=== PATIENT | male | born 1975 | race Caucasian/White ===

== ENCOUNTER 2022-09-20 18:07 | Emergency (ER) | payer BC, SELFPAY ==
[2022-09-20 18:27] VITALS: BP 134/98; PULSE 96; RESP 20; TEMP 37.3; O2SAT 98; BMI 32.5
--- NOTE | 2022-09-20 18:38 | ECG_ITS ---
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
--- NOTE | 2022-09-20 19:03 | ED.GENADUL1 ---
HPI - General Adult General Chief complaint: Dizziness Stated complaint: DIZZNESS EARACHE Time Seen by Provider: 09/20/22 18:51 Source: patient Mode of arrival: walk-in Limitations: no limitations History of Present Illness HPI narrative: 47 year old male presents to the ED for right ear discomfort, ringing. He has had the ringing for months, intermittently. States he developed increased discomfort over the past couple of days. Reports an episode of dizziness with a spinning sensation today. Denies fever, chills, RAMÍREZ, vision changes, weakness, N/V. Denies CP, SOB, cough, neck pain. Denies back pain, abd pain, diarrhea, urinary sx. Rates his pain 4/10 at this time. Related Data Previous Rx's Medication Instructions Recorded cetirizine 10 mg tablet (Zyrtec) 10 mg PO DAILY #14 tabs 09/20/22 meclizine 25 mg tablet 25 mg PO TID PRN dizziness or 09/20/22 vertigo #14 tabs Allergies Allergy/AdvReac Type Severity Reaction Status Date / Time No Known Drug Allergies Allergy Verified 09/20/22 18:27 Review of Systems ROS Constitutional Denies: fever or chills Eyes Denies: change in vision or blurry vision Ears, nose, mouth, and throat Reports: ear pain, tinnitus and vertigo; Denies: throat pain, neck pain, ear discharge or nasal congestion Cardiovascular Denies: chest pain or palpitations Respiratory Denies: shortness of breath or cough Gastrointestinal Denies: nausea or vomiting Musculoskeletal Denies: back pain or neck pain Integumentary/Breast Denies: rash Neurological Reports: vertigo; Denies: headache, numbness in extremities, weakness in extremities or lack of coordination [facility], [facility] Medical History (Updated 09/20/22 @ 19:32 by Tanesha Sibley) Surgical History (Updated 09/20/22 @ 18:43 by Leighton Bustamante) Social History Smoking status: Former smoker Exam Constitutional Vital Signs, click to edit/add: Last Vital Signs Temp 99.2 F 09/20/22 18:27 Pulse 96 H 09/20/22 18:27 Resp 20 09/20/22 18:27 BP 134/98 H 09/20/22 18:27 Pulse Ox 98 09/20/22 18:27 Common normals: no apparent distress and oriented x3 Exam limitations: no altered mental status General appearance: cooperative; not in distress HENMT Common normals: normocephalic Face and sinus: face symmetric External ear: external ears normal External auditory canal: EACs normal Tympanic membrane: TM normal on the left and TM abnormal TM laterality: right with fluid behind the TM; not erythematous, with no loss of landmarks, not obstructed by cerumen and not perforated Mouth: oral and palatal mucosa normal, lip normal and tongue normal Eye Common normals: PERRL and EOMs intact bilaterally Chest Chest: symmetrical chest wall rise Respiratory Common normals: normal respiratory effort Effort & inspection: symmetric chest movement Cardio Common normals: regular rate and regular rhythm Neuro Common normals: oriented x3, CN's II-XII intact bilaterally, moves all extremities, no focal motor deficits, no sensory deficits noted and gait normal Sensorium/orientation: awake and alert Speech: speech normal Gait (neuro): normal gait Course Vital Signs Vital signs: Vital Signs Temperature 99.2 F 09/20/22 18:27 Pulse Rate 96 H 09/20/22 18:27 Respiratory Rate 20 09/20/22 18:27 Blood Pressure 134/98 H 09/20/22 18:27 Pulse Oximetry 98 09/20/22 18:27 Temperature 99.2 F 09/20/22 18:27 Pulse Rate 96 H 09/20/22 18:27 Respiratory Rate 20 09/20/22 18:27 Blood Pressure 134/98 H 09/20/22 18:27 Pulse Oximetry 98 09/20/22 18:27 Medical Decision Making MDM Narrative Medical decision making narrative: Prescriptions were provided for Antivert and Zyrtec. Follow up with pcp for a recheck, further evaluation and treatment. Medical Records Medical records reviewed: Yes I reviewed the patient's medical records Discharge Plan Discharge Chief Complaint: Dizziness Clinical Impression: Vertigo, Ear pain, right Patient Disposition: Home, Self-Care Time of Disposition Decision: 19:28 Condition: Good Mode of Transportation: Private Vehicle Prescriptions / Home Meds: New meclizine 25 mg tablet 25 mg PO TID PRN (Reason: dizziness or vertigo) Qty: 14 0RF cetirizine [Zyrtec] 10 mg tablet 10 mg PO DAILY Qty: 14 0RF Instructions: Vertigo (ED), Earache (ED), Dizziness (ED), Tinnitus (ED) Stand Alone Forms: Portal Instructions Referrals: Physician,Non-Staff, MD [Primary Care Provider] - 1 week Discharge Date/Time: 09/20/22 19:39
[2022-09-20] MEDS: MECLIZINE HCL 12.5 MG TABLET 25 MG PO (19:06)
== END 2022-09-20 19:39 | disposition home or self-care (01) ==
PROVIDERS: Emergency Provider Emergency Medicine; Family Provider Family Medicine
DX: H92.01 Otalgia, right ear (principal); R42 Dizziness and giddiness; Z87.891 Personal history of nicotine dependence
CPT/HCPCS: 93005; 99283